=== PATIENT | female | born 1965 | race Caucasian/White ===

== ENCOUNTER 2024-10-24 11:39 | Emergency (ER) | payer SELFPAY ==
[2024-10-24 12:12] VITALS: BP 149/60; PULSE 66; RESP 18; TEMP 36.7; O2SAT 98; BMI 37.4
--- NOTE | 2024-10-24 12:25 | CT_ITS ---
WS: [id number] CT HEAD TECHNIQUE: Noncontrast CT of the head obtained from the skullbase to the vertex. CLINICAL INFORMATION: fall COMPARISON: None. DLP: 976.[address] scans at [facility] use at least one of these dose optimization techniques: automated exposure control; mA and/or kV adjustment per patient size (includes targeted exams where dose is matched to clinical indication); or iterative reconstruction. FINDINGS: No evidence of intracranial hemorrhage or mass effect. Ventricular system and basal cisterns are patent. Mild small vessel changes with mild parenchymal volume loss. No extra-axial fluid collections. No evidence of mass or mass effect. Paranasal sinuses and mastoid air cells are well aerated. .Normal visualized soft tissues. CT/CT head wo con* [id number] IMPRESSION: 1. No evidence of intracranial hemorrhage or mass effect. 2. No acute intracranial findings.
--- NOTE | 2024-10-24 12:25 | XR_ITS ---
WS: [id number] Exam: XR chest 1V portable [id number] Date/Time of Exam: 10/24/2024 12:31 PM Reason For Exam: weakness No priors. Soft tissue density identified along the RIGHT heart border may represent focal infiltrate, mass or atelectasis. The remaining lung krueger are clear no pleural effusions or pneumothorax. Normal heart size. The mediastinum is normal in contour. Bony structures are intact. Recommendations: Follow-up imaging recommended to confirm resolution. Chest CT may be necessary for further evaluation. XR/XR chest 1V portable [id number] IMPRESSION: 1. Pulmonary density seen along the RIGHT heart border that could represent a m ass, pneumonia and/or atelectasis. No prior exams available to determine the ch ronicity of this finding. No other significant finding.
[2024-10-24 12:38] VITALS: BP 148/56; O2SAT 97
[2024-10-24 12:45] VITALS: BP 148/56; O2SAT 98
[2024-10-24 12:45] LABS: Basophils # 0.1 10^3/uL (0.0-0.1); Basophils % 0.8 %; Eosinophils # 0.1 10^3/uL (0.0-0.8); Eosinophils % 1.6 %; Hematocrit 41.3 % (36-47); Lymphocytes # 1.4 10^3/uL (0.8-4.8); Mean Corpuscular HGB Conc 33.9 g/dL (30-55); Mean Corpuscular Hemoglobin 32.3 pg (27-33); Mean Corpuscular Volume 95.4 fl (85-98); Mean Platelet Volume 9.3 fL (7.4-10.4); Monocytes # 0.8 10^3/uL (0.2-0.9); Monocytes % 10.4 %; Neutrophils # 5.54 10^3/uL (1.8-7.7); Neutrophils % 69.7 %; Nucleated Red Blood Cells % 0 %; Platelet Count 363 10^3/cmm (157-399); Red Blood Count 4.33 10^6/uL (3.85-5.65); White Blood Count 7.95 10^3/uL (3.29-11.43)
--- NOTE | 2024-10-24 12:46 | ED_ITS ---
HPI - Weakness 2 General: Chief complaint: Weakness Stated complaint: trouble walking Time Seen by Provider: 10/24/24 12:21 Source: patient Mode of arrival: ambulatory Limitations: no limitations History of Present Illness: 59-year-old female states has been havin g lower leg weakness has been going on for a year. States she has had gradual increased weakness to her legs with a hard time walking she states its gotten worse since August and she has had frequent falls she able lift both legs but states she is feels extremely weak when she walks she denies any pain denies any back pain states she did hit her head 3 days when she fell and has had some slight headache. Associated symptoms: Denies chest pain, chills, fever(s), headache(s), nausea or vomiting Review of Systems 2 Const: Denies: fever(s), chills, body aches or change in appetite ENMT: Denies: throat pain or dental pain Card: Denies: chest pain Resp: Denies: dyspnea GI: Denies: abdominal pain, nausea, vomiting or diarrhea Musc: Denies: neck pain or back pain Skin/Breast: Denies: rash Neuro: Reports: weakness in extremities; Denies: headache(s) Physical Exam 2 Const: COMMON NORMALS: no acute distress, patient oriented x3 and healthy appearing HENMT: COMMON NORMALS: normocephalic and atraumatic HEAD & SCALP: n ormocephalic and atraumatic Eye: COMMON NORMALS: conjunctivae normal CONJUNCTIVA: Yes conjunctivae normal Neck/C-Spine: COMMON NORMALS: full ROM and supple Chest: COMMONS NORMALS: normal inspection of the chest Resp: COMMON NORMALS: normal respiratory effort, No retractions, No use of accessory muscles and clear to auscultation bilaterally AUSCULTATION: clear to auscultation bilaterally Cardio: COMMON NORMALS: regular rate, regular rhythm and No murmurs present (Cardio) RATE: regular rate RHYTHM: regular rhythm GI: COMMON NORMALS: Normal to inspection, nondistended, normoactive bowel sounds present, Soft to palpation, non-tender and no masses PALPATION: Yes Soft to palpation Extremity: COMMON NORMALS: normal to inspection and full ROM Neuro: COMMON NORMALS: patient oriented x3, moves all extremities and no focal motor deficits Psych: COMMON NORMALS: mental status grossly normal, Normal thought process present and cooperative THOUGHT PROCESS: Normal thought process present Skin: COMMON NORMALS: no rashes or lesions noted and no wounds GENERAL SKIN EXAM: no rashes or lesions noted Course 2 Vital Signs: Vital signs: Vital Signs Temperature 98.1 F 10/24/24 12:12 Pulse Rate 66 10/24/24 12:12 Respiratory Rate 18 10/24/24 12:12 Blood Pressure 148/76 10/24/24 14:01 Pulse Oximetry 98 10/24/24 14:01 Oxygen Delivery Me thod Room Air 10/24/24 12:12 MDM - Weakness Medical Decision Making Patient presents here with generalized weakness she is able to ambulate informed her she needs to start ambulating with a walker though CT did find a lung mass we will get a follow-up with oncology blood works normal no signs of lumbar mass stable for discharge follow-up PCP return if worsening. Medical Records I reviewed the patient's medical records. Lab Data I reviewed the patient's lab results. 10/24/24 12:39 10/24/24 12:39 Radiology Impressions Chest X-Ray 10/24/24 12:25 IMPRESSION: 1. Pulmonary density seen along the RIGHT heart border that could represent a mass, pneumonia and/or atelectasis. No prior exams available to determine the chronicity of this finding. No other significant finding. Head CT 10/24/24 12:25 IMPRESSION: 1. No evidence of intracranial hemorrhage or mass effect. 2. No acute intracranial findings. Chest CT 10/24/24 13:00 IMPRESSION: 1. Masslike consolidation in the right lower lobe extending into the right hilum concerning for malignancy. Multiple adjacent micro nodules could represent spread within the small airways. Recommend PET-CT or tissue sampling for further evaluation. 2. No evidence of a pulmonary embolism. No pneumothorax or pleural effusion. 3. Diffuse emphysema. Lumbar Spine CT 10/24/24 13:00 IMPRESSION: 1. No evidence of a lumbar spinal fracture or malalignment. Minimal degenerative change at L5-S1. No CT apparent disc herniation or spinal canal stenosis. 2. Nonspecific tree-in-bud type micro nodularity in the right lung base suggesting a atypical infectious process or nonspecific distal bronchiolitis. Laboratory Results WBC 7.95 10^3/uL (3.29-11.43) 10/24/24 12:39 RBC 4.33 10^6/uL (3.85-5.65) 10/24/24 12:39 Hgb 14.00 g/dL (11.27-16.99) 10/24/24 12:39 Hct 41.3 % (36-47) 10/24/24 12:39 MCV 95.4 fl (85-98) 10/24/24 12:39 MCH 32.3 pg (27-33) 10/24/24 12:39 MCHC 33.9 g/dL (30-55) 10/24/24 12:39 RDW 12.0 % (12.1-15.1) L 10/24/24 12:39 Plt Count 363 10^3/cmm (157-399) 10/24/24 12:39 MPV 9.3 fL (7.4-10.4) 10/24/24 12:39 Neut % (Auto) 69.7 % 10/24/24 12:39 Lymph % (Auto) 17.0 % 10/24/24 12:39 Morgan % (Auto) 10.4 % 10/24/24 12:39 Eos % (Auto) 1.6 % 10/24/24 12:39 Baso % (Auto) 0.8 % 10/24/24 12:39 Neut # (Auto) 5.54 10^3/uL (1.8-7.7) 10/24/24 12:39 Lymph # (Auto) 1.4 10^3/uL (0.8-4.8) 10/24/24 12:39 Morgan # (Auto) 0.8 10^3/uL (0.2-0.9) 10/24/24 12:39 Eos # (Auto) 0.1 10^3/uL (0.0-0.8) 10/24/24 12:39 Baso # (Auto) 0.1 10^3/uL (0.0-0.1) 10/24/24 12:39 Nucleated RBC % (auto) 0 % 10/24/24 12: Nucleated RBCs # 0.0 /100WBC 10/24/24 12:39 Sodium 135 mmol/L (136-145) L 10/24/24 12:39 Potassium 4.3 mmol/L (3.5-5.1) 10/24/24 12:39 Chloride 101 mmol/L (98-107) 10/24/24 12:39 Carbon Dioxide 26 mmol/L (22-29) 10/24/24 12:39 Anion Gap 12.3 (5-19) 10/24/24 12:39 BUN 7 mg/dL (8-23) L 10/24/24 12:39 Creatinine 0.6 mg/dL (0.5-0.9) 10/24/24 12:39 GFR Calculation 101.6 mL/min (90-130) 10/24/24 12:39 Glucose 104 mg/dL (65-115) 10/24/24 12:39 Calculated Osmolality 278 mOsm/kg (285-295) L 10/24/24 12:39 Calcium 9.1 mg/dL (8.5-10.5) 10/24/24 12:39 Magnesium 2.0 mg/dL (1.7-2.3) 10/24/24 12:39 Total Bilirubin 0.6 mg/dL (0.15-1.2) 10/24/24 12:39 AST 25 U/L (0-32) 10/24/24 12:39 ALT 22 U/L (0-33) 10/24/24 12:39 Alkaline Phosphatase 96 U/L (35-105) 10/24/24 12:39 Total Protein 7.5 g/dL (6.6-8.7) 10/24/24 12:39 Albumin 4.2 g/dL (3.5-5.2) 10/24/24 12:39 Globulin 3.3 g/dL (1.3-4.6) 10/24/24 12:39 TSH 4.91 uIU/mL (0.27-4.20) H 10/24/24 12:39 All radiology interpretation(s) finalized by discharge EKG Data EKG 1: I personally reviewed and interpreted this EKG as follows: EKG interpretation date: 10/24/24 EKG interpretation time: 13:53 Interpretation: nsr hr [address] elevation qrs 69 qtc 447 Discharge Plan Discharge Patient Disposition: Home Clinical Impression: Weakness, Lung mass Condition: Stable Prescriptions: No Action No Known Home Medications Discharge Orders: Discharge ED (Routine); Ordered 10/24/24 Ordered By: Abida Maria Discharge Diet: Advance as tolerated Discharge Activity: Resume usual activity Patient Instructions: Lung Cancer (DC), Weakness (ED) Print Language: Burkinan Coding Level of Care Code ED Sales Management Intern for Chg Fwd Related Data Home Medications ?Medication ?Instructions ?Recorded ?Confirmed No Known Home Medications 10/24/2410/01 Allergies Allergy/AdvReac Type Severity Reaction Status Date / Time No Known Allergies Allergy Verified 10/24/24 12:15
--- NOTE | 2024-10-24 13:00 | CTR_ITS ---
PROCEDURE INFORMATION: Exam: CT Lumbar Spine Without Contrast Exam date and time: 10/24/2024 1:38 PM Age: 59 years old Clinical indication: Weakness; Additional info: Leg weakness TECHNIQUE: Imaging protocol: Computed tomography of the lumbar spine without contrast. Radiation optimization: All CT scans at this facility use at least one of these dose optimization techniques: automated exposure control; mA and/or kV adjustment per patient size (includes targeted exams where dose is matched to clinical indication); or iterative reconstruction. COMPARISON: No relevant prior studies available. RADIATION DOSE METRICS: Total DLP (mGy-cm): 289.6 FINDINGS: Bones/joints: There is no evidence of increased density within the spinal canal to suggest hemorrhage. No CT apparent posterior disc herniation or spinal canal narrowing. Normal lumbar spinal alignment without listhesis. Vertebral body heights are maintained without compression deformity. Minimal endplate degenerative change L3 through L5 without evidence of disc space narrowing. Minimal facet arthrosis at L5-S1. Lungs: Scattered tree-in-bud type micro nodularity in the right lung base. Abdomen: Incidental splenic granulomatous calcification. Visualized abdominal solid organs and hollow viscera are otherwise unremarkable. Vasculature: Moderate atherosclerosis in the abdominal aorta without aneurysm. Soft tissues: The visualized superficial soft tissues have a normal appearance. CT/CT lumbar spine wo con* [id number] IMPRESSION: 1. No evidence of a lumbar spinal fracture or malalignment. Minimal degenerative change at L5-S1. No CT apparent disc herniation or spinal canal stenosis. 2. Nonspecific tree-in-bud type micro nodularity in the right lung base suggesting a atypical infectious process or nonspecific distal bronchiolitis.
--- NOTE | 2024-10-24 13:00 | CTR_ITS ---
PROCEDURE INFORMATION: Exam: CT Chest With Contrast; Diagnostic Exam date and time: 10/24/2024 1:38 PM Age: 59 years old Clinical indication: Bilateral leg weakness, difficulty standing straight and walking x 14 months. PT states she has a pinched nerve. PT C/O blurry vision, and SOB. ; Additional info: Cancer TECHNIQUE: Imaging protocol: Diagnostic computed tomography of the chest with contrast. Radiation optimization: All CT scans at this facility use at least one of these dose optimization techniques: automated exposure control; mA and/or kV adjustment per patient size (includes targeted exams where dose is matched to clinical indication); or iterative reconstruction. Contrast material: OMNI 350; Contrast volume: 100 ml; Contrast route: INTRAVENOUS (IV); COMPARISON: CR XR chest 1V portable [id number] 10/24/2024 12:31 PM RADIATION DOSE METRICS: Total DLP (mGy-cm): 526.65 FINDINGS: Lungs: Diffuse emphysematous changes. There is masslike consolidation in the right lower lobe extending into the inferior right hilum concerning for malignancy. This appears to have mass effect on the traversing pulmonary arteries and opacifies the right lower lobe bronchi. There are scattered adjacent micro nodules which could represent an infectious or inflammatory process or possible metastatic spread within the small airways. Pleural spaces: No pneumothorax or pleural effusion. There is a focal nodular pleural thickening in the right lung apex posteriorly which may represent scarring or possible nodule measuring approximately 1.3 cm in size. Heart: Normal size of the heart. No pericardial effusion. Lymph nodes: No mediastinal lymphadenopathy. There is inferior right hilar lymphadenopathy. Vasculature: Minimal atherosclerosis in the thoracic aorta and visualized upper abdominal aorta without aneurysm or dissection. The pulmonary arteries are well opacified with contrast. No evidence of a pulmonary embolism. Upper abdomen: Cholelithiasis is present in the gallbladder. No evidence of cholecystitis.The visualized upper abdominal solid organs and hollow viscera are otherwise unremarkable. Bones/joints: Mild scattered degenerative changes of the visualized spine. No aggressive osseous lesion or fracture is seen. Soft tissues: The visualized superficial soft tissues have a normal appearance. CT/CT chest w con* [id number] IMPRESSION: 1. Masslike consolidation in the right lower lobe extending into the right hilum concerning for malignancy. Multiple adjacent micro nodules could represent spread within the small airways. Recommend PET-CT or tissue sampling for further evaluation. 2. No evidence of a pulmonary embolism. No pneumothorax or pleural effusion. 3. Diffuse emphysema.
[2024-10-24 13:14] LABS: Alanine Aminotransferase 22 U/L (0-33); Albumin Level 4.2 g/dL (3.5-5.2); Alkaline Phosphatase 96 U/L (35-105); Anion Gap 12.3 (5-19); Aspartate Amino Transferase 25 U/L (0-32); Blood Urea Nitrogen 7 mg/dL (8-23); Calcium 9.1 mg/dL (8.5-10.5); Carbon Dioxide 26 mmol/L (22-29); Chloride 101 mmol/L (98-107); Globulin 3.3 g/dL (1.3-4.6); Glomerular Filtration Rate 101.6 mL/min (90-130); Glucose 104 mg/dL (65-115); Osmolality Calculated 278 mOsm/kg (285-295); Potassium 4.3 mmol/L (3.5-5.1); Sodium 135 mmol/L (136-145); Thyroid Stimulating Hormone 4.91 uIU/mL (0.27-4.20); Total Bilirubin 0.6 mg/dL (0.15-1.2); Total Protein 7.5 g/dL (6.6-8.7)
--- NOTE | 2024-10-24 13:53 | ECG_ITS ---
[facility] 2024[facility]24 Pat Name: Christa Mancera Department: Room: Gender: Female Lathe Spotter: : 1965 Requested By: Abida Maria Order Number: [id number] Eric MD: Manny Donaldson M.D. Measurements Intervals [place] Rate: 69 P: 64 MI: 172 QRS: 49 QRSD: 69 T: 64 QT: 429 QTc: 460 Interpretive Statements SINUS RHYTHM SEPTAL MYOCARDIAL INFARCTION , OF INDETERMINATE AGE [40+ ms Q WAVE IN V1/V2] No previous ECG available for comparison Electronically Signed On 10-25-2024 12:34:40 CDT by Manny Donaldson M.D. [email or web address]
[2024-10-24 14:01] VITALS: BP 148/76; O2SAT 98
== END 2024-10-24 15:02 | disposition home or self-care (01) ==
PROVIDERS: Emergency Provider Emergency Medicine
DX: R53.1 Weakness (principal); R91.8 Other nonspecific abnormal finding of lung field
CPT/HCPCS: 36415; 70450; 71045; 71260; 72131; 80053; 83735; 84443; 85025; 93005; 99285

== ENCOUNTER → 2024-12-26 15:24 | Outpatient (BNVA) | payer MEDICAID, SELFPAY | PROVIDERS: PCP Nurse Practitioner Family; Visit Provider Family Medicine | DX: Z01.818 Encounter for other preprocedural examination (principal) | CPT/HCPCS: 80048; 85025 ==

== ENCOUNTER 2024-12-27 12:30 | Oncology outpatient (recurring) (ONCR) | payer MEDICAID, SELFPAY ==
--- NOTE | 2024-12-04 11:00 | MR_ITS ---
WS: [id number] MRI BRAIN WITH AND WITHOUT CONTRAST HISTORY: small cell lung cancer, bilateral leg weakness. Difficulty standing and walking. COMPARISON: CT head 10/24/2024 TECHNIQUE: Multiplanar imaging performed through the brain with MultiHance 10 ml's IV. No acute infarcts are seen. Rachel-white matter differentiation is well preserved. Mild atrophy and mild small vessel ischemic changes, greatest in the periventricular white matter. No prior infarct. Mild cerebellar atrophy. There is mild chronic ischemic change bilaterally in the melanie. Mild hippocampal atrophy. No susceptibility artifacts or prior lacunar infarcts. Ventricles and extra-axial spaces are normal. Clivus and pituitary gland are normal. Visualized posterior fossa and brainstem are also normal. Postcontrast images are negative for masses or vascular malformations. Dural venous sinuses are normal. Paranasal sinuses: Well aerated with no significant disease. Mastoid air cells: Normal. Calvarium and scalp: Normal. MR/MR head wo/w con [id number] IMPRESSION: 1. No acute intracranial hemorrhage or infarct. 2. No metastatic disease to the brain or areas of abnormal enhancement. 3. Mild cerebral and cerebellar atrophy and small vessel disease. 4. Mild hippocampal atrophy.
[2024-12-04] MEDS: gadobenate dimeglumine 20 mL vial IV (11:28)
--- NOTE | 2024-12-15 14:00 | PETR_ITS ---
PROCEDURE INFORMATION: Exam: PET/CT Skull Base to Mid-thigh Exam date and time: 12/15/2024 2:02 PM Age: 59 years old Clinical indication: Condition or disease; Primary cancer: Smell cell lung cancer LABS AND CLINICAL REPORTS: Glucose: 108 mg/dl Treatment strategy for malignancy (PET staging): Initial Staging (PI) TECHNIQUE: Imaging protocol: Following at least four-hour fasting and following the injection of radiopharmaceutical, low dose CT images were obtained. Then, PET images were obtained. Attenuation corrected images were constructed using the CT scan. Fused images of PET and CT were reviewed. The standardized uptake values (SUV) reported below are maximum values within a region of interest, expressed in gm/ml. Exam includes orbital meatal line to mid-thigh. SUV normalization method: BodyWeight Radiopharmaceutical: 10.57 mCi F-18 FDG (Fluorodeoxyglucose), IV. Time of imaging post radiopharmaceutical administration: 48 minutes Injection site: right ac COMPARISON: 1. CT chest w con* [id number] 10/24/2024 1:[address] lumbar spine wo con* [id number] 10/24/2024 1:38 PM FINDINGS: Brain: Visualized brain has normal physiologic uptake. Pharynx: No abnormal uptake. Larynx: Symmetric uptake without underlying CT abnormality is likely physiologic. Lungs, pleura and trachea: Upper lung predominant emphysematous change. Known masslike opacity at the right lower lobe with associated bronchial occlusion shows SUV max 11.9 on axial image 121 and is partially obscured on CT from developed adjacent less FDG avid consolidation at the anterolateral basal right lower lobe. Heart: Normal physiologic uptake. Mediastinal space: No abnormal uptake. Liver: No abnormal uptake. Gallbladder and biliary ducts: No abnormal uptake. Cholelithiasis. Pancreas: No abnormal uptake. Spleen: No abnormal uptake. Adrenal glands: No abnormal uptake. Kidneys and ureters: Normal physiologic uptake. Stomach and bowel: No abnormal uptake. Colonic diverticulosis without findings of diverticulitis. Vasculature: No abnormal uptake. Moderate systemic atherosclerotic calcification without aortic aneurysm. Lymph nodes: FDG avid mediastinal and right hilar lymphadenopathy with index AP window node measuring 0.7 cm in the short axis on axial image 80 showing SUV max 3.9, subcarinal node measuring 0.9 cm in the short axis showing SUV max 4.7, and right hilar node showing SUV max 4.1 on axial image 104. Skeleton: Low-level FDG uptake along the spine and sacrum without underlying CT abnormality. Bilateral hip periarticular FDG uptake is likely inflammatory. Soft tissues: No abnormal uptake in the visualized head, neck, chest, abdomen, pelvis, and extremities. METRICS: Mediastinal blood pool: SUV mean 1.8 Liver uptake: SUV mean 2.0 PET/PET skull to thigh INIT [id number] IMPRESSION: 1. FDG avid right lower lobe masslike opacity compatible with malignancy. Associated bronchial occlusion. 2. Developed FDG avid anterolateral basal right lower lobe consolidation partially obscuring right lower lobe mass suggestive of postobstructive pneumonia given upstream bronchial occlusion, progressive malignant disease involvement not excluded. 3. FDG avid mediastinal and right hilar lymphadenopathy suspected to represent metastatic disease. 4. Low-level FDG uptake along the spine and sacrum without underlying CT abnormality favors hyperplasia. 5. Additional chronic and incidental findings as above, to include atherosclerosis, colonic diverticulosis and cholelithiasis.
[2024-12-19 09:24] LABS: Basophils # 0.1 10^3/uL (0.0-0.1); Basophils % 0.3 %; Hematocrit 33.3 % (36-47); Lymphocytes # 1.1 10^3/uL (0.8-4.8); Lymphocytes % 3.1 %; Mean Corpuscular HGB Conc 33.3 g/dL (30-55); Mean Corpuscular Hemoglobin 31.4 pg (27-33); Mean Corpuscular Volume 94.3 fl (85-98); Mean Platelet Volume 9.2 fL (7.4-10.4); Monocytes % 5.5 %; Neutrophils # 31.96 10^3/uL (1.8-7.7); Neutrophils % 87.9 %; Nucleated Red Blood Cells % 0 %; Platelet Count 525 10^3/cmm (157-399); Red Blood Count 3.53 10^6/uL (3.85-5.65); Red Cell Distribution Width 14.2 % (12.1-15.1)
[2024-12-19 09:27] LABS: White Blood Count 36.33 10^3/uL (3.29-11.43)
[2024-12-19 09:46] LABS: Alanine Aminotransferase 11 U/L (0-33); Albumin Level 2.6 g/dL (3.5-5.2); Alkaline Phosphatase 207 U/L (35-105); Anion Gap 22.2 (5-19); Aspartate Amino Transferase 11 U/L (0-32); Blood Urea Nitrogen 9 mg/dL (8-23); Calcium 8.4 mg/dL (8.5-10.5); Carbon Dioxide 20 mmol/L (22-29); Chloride 99 mmol/L (98-107); Creatinine Clr Calc Pharmacy 85.3193; Globulin 4.1 g/dL (1.3-4.6); Glomerular Filtration Rate 125.4 mL/min (90-130); Glucose 104 mg/dL (65-115); Osmolality Calculated 285 mOsm/kg (285-295); Potassium 3.2 mmol/L (3.5-5.1); Sodium 138 mmol/L (136-145); Total Bilirubin 0.4 mg/dL (0.15-1.2); Total Protein 6.7 g/dL (6.6-8.7)
--- NOTE | 2024-12-19 16:21 | N.ONRAD NP_ITS ---
Radiation Oncology New Patient Visit Patient: Christa Mancera MR#: [id number] : 1965> Age: 59> Sex: Female> Dictated by: Dr. 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 Chief Complaint / History of Present Illness: She developed progressive LE weakness since ultimately resulting in visit to ER. In ER CT 10/24/2024 revealed mass or infiltrate in RLL. Bronch and bx 11/28/2024 of RLL revealed small cell lung carcinoma. PET/CT 12/15/2024 revealed solid mass 6.5 x 5.5 mass I RLL with ring of uptake c/w necrotic malignancy abutting chest wall and diaphragm , uptake in right hilar, sub-carinal and left AP lymph nodes. No occult metastatic disease on my review. Leg weakness and stiffness is progressive. Walks slowly and holds on to surfaces for stabilization. Also using a cane. Always SOB. PO2 is in the 90???s. Ongoing weight loss from 110 to 98 pounds. Tries to eat. Lives with boyfriend x 28 years who is not much help to her. Ongoing fatigue. Ongoing right low chest and flank pain. Smoking less from 1 ppd to ??? ppd. Current Medications: albuterol sulfate 90 mcg/actuation (Ventolin HFA) inhalation, umeclidinium-vilanterol 62.5-25 mcg/actuation (Anoro Ellipta) inhalation Allergies: No Known Allergies Medical History: No history of collagen vascular disease. No previous radiation therapy. Surgical History: Family History: mother and father of malignancy. Social History: Smoking and tobacco/nicotine status: current some day tobacco/nicotine user Current Complaints / Review of Systems: . Vital Signs: Performed on 12/19/2024 9:04 AM BMI - 17.856 kg/m2 (low), Height - 61 in, Weight - 94.5 lbs, Temperature - 98.7 f, Pulse - 82 /min, Respiration - 17 /min, O2 Sat - 98 %, Pain - 9, Fatigue - 0 and BP - 105/ 66 mm(hg). Physical Exam: Elderly appearing for age. No adenopathy. Occ rhonchi in lower right field. No extremity clubbing or edema. Gait very slow wide based and unsteady. 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 This has caused her neurologic impairment. She is a fair candidate for combined chest radiation and chemo immunotherapy. Discussed briefly the use of PCI after completion of primary treatment. Long discussion with patient and her daughter. 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 Advised her that she would also benefit from smoking cessation. Discussed with Dr. Hebert Plan on simulation and port placement. Dr. Hebert will add appropriate pain mes. Plan: Signed by: 12/19/2024 4:19:45 PM <<Signature on File>> Time spent with patient: CPT Code: CPT Code:
--- NOTE | 2024-12-27 12:42 | XR_ITS ---
WS: [id number] PA and lateral chest, 12/27/2024 Clinical Data: leukocytosis, productive cough Comparison: Portable chest, 10/24/2024 Findings: There is opacification of the right lower lobe with a right pleural effusion. The opacification could represent a mass in the right hilum and right lower lobe with surrounding postobstructive atelectasis and/or pneumonia. The left lung is clear. The heart is normal. No pneumothorax is seen. The pulmonary vascularity is not increased. XR/XR chest 2V* [id number] Impression: 1. Patchy right lower lobe opacity which could represent a combination of mass, pneumonia and atelectasis. 2. Small right pleural effusion.
[2024-12-27 13:27] LABS: Basophils # 0.1 10^3/uL (0.0-0.1); Basophils % 0.4 %; Eosinophils % 0.1 %; Hematocrit 33.4 % (36-47); Lymphocytes % 4.2 %; Mean Corpuscular HGB Conc 31.7 g/dL (30-55); Mean Corpuscular Hemoglobin 30.5 pg (27-33); Mean Platelet Volume 9.1 fL (7.4-10.4); Monocytes # 1.5 10^3/uL (0.2-0.9); Monocytes % 6.5 %; Neutrophils # 19.29 10^3/uL (1.8-7.7); Neutrophils % 85.9 %; Nucleated Red Blood Cells % 0 %; Platelet Count 364 10^3/cmm (157-399); Red Blood Count 3.48 10^6/uL (3.85-5.65); Red Cell Distribution Width 14.9 % (12.1-15.1); White Blood Count 22.45 10^3/uL (3.29-11.43)
[2024-12-27 13:52] LABS: Alanine Aminotransferase 26 U/L (0-33); Albumin Level 2.5 g/dL (3.5-5.2); Alkaline Phosphatase 245 U/L (35-105); Anion Gap 22.4 (5-19); Aspartate Amino Transferase 34 U/L (0-32); Blood Urea Nitrogen 10 mg/dL (8-23); Calcium 8.1 mg/dL (8.5-10.5); Carbon Dioxide 18 mmol/L (22-29); Chloride 97 mmol/L (98-107); Creatinine Clr Calc Pharmacy 85.3193; Globulin 4.3 g/dL (1.3-4.6); Glomerular Filtration Rate 125.4 mL/min (90-130); Glucose 93 mg/dL (65-115); Osmolality Calculated 275 mOsm/kg (285-295); Potassium 4.4 mmol/L (3.5-5.1); Sodium 133 mmol/L (136-145); Total Bilirubin 0.3 mg/dL (0.15-1.2); Total Protein 6.8 g/dL (6.6-8.7)
== END 2024-12-30 23:59 | disposition home or self-care (01) ==
PROVIDERS: Internal Medicine Medical Oncology; Absent Provider Family Medicine; PCP Nurse Practitioner Family; Visit Provider Radiology Radiation Oncology
DX: C34.81 Malignant neoplasm of overlapping sites of right bronchus and lung (principal); D72.829 Elevated white blood cell count, unspecified; J90 Pleural effusion, not elsewhere classified
CPT/HCPCS: 36415; 70553; 71046; 77334; 78815; 80053; 85025; 87040; A9552

== ENCOUNTER → 2025-02-14 08:52 | Day surgery (SDC) | payer MEDICAID, SELFPAY ==
--- NOTE | 2024-12-29 08:26 | PICC.NOTE ---
Pt scheduled for OPS PICC today. Pt called and stated she had a bad night of coughing and will not be able to make it to appointment. Pt instructed to go to ER for continued shortness of breath and coughing. Pt states she doesn't think it is that bad. Pt rescheduled for OPS PICC on 01/01/25 at 1000. [facility]
--- NOTE | 2025-02-14 08:56 | XR_ITS ---
WS: [id number] XR chest 1V portable [id number] REASON FOR EXAM: Post PICC insertion FINDINGS: Right arm PICC line has been placed. The tip is in the mid to distal SVC. X-ray technologist/PICC line nurse indicated there is no additional catheter for advancement. The catheter will work properly in the current position. This was communicated over the phone to the radiology physician at 9:34 a.m. 02/14/2025. XR/XR chest 1V portable [id number] IMPRESSION: Right arm PICC line placement as above.
[2025-02-14 09:00] VITALS: BP 149/60; PULSE 75; RESP 18; TEMP 36.9; O2SAT 95
--- NOTE | 2025-02-14 10:07 | PICC.NOTE ---
Single lumen PICC placed to right brachial vein. Referred to vascular access nurse for PICC placement due to need for chemotherapy. Risks and benefits discussed and informed consent obtained from pt. Right arm assessed with right brachial vein measuring 4.2 mm, straight, and apparent best choice for placement. Using sterile technique and MST, right brachial vein accessed x 1 stick. Mid-arm circumference measured 10 cm from right AC 22 cm. Trimmed cath 35 cm with 0 cm external length noted. CXR shows tip in SVC, in proper position for use per radiologist. Line secured with stat-lock. Insertion site covered with Biopatch and TSM. Oncology, Evelyn, notified of successful PICC placement. Pt to keep follow up appointment with CTC tomorrow as scheduled. Pt provided education on PICC with handouts. No questions voiced at this time.
== END ==
PROVIDERS: PCP Nurse Practitioner Family; Visit Provider Internal Medicine
DX: Z45.2 Encounter for adjustment and management of vascular access device (principal)
CPT/HCPCS: 36573; 71045; J9999

== ENCOUNTER 2025-03-01 14:51 | Oncology outpatient (recurring) (ONCR) | payer MEDICAID, SELFPAY ==
[2025-02-20 08:17] LABS: Hematocrit 36.9 % (36-47); Hemoglobin 11.60 g/dL (11.27-16.99); Mean Corpuscular HGB Conc 31.4 g/dL (30-55); Mean Corpuscular Hemoglobin 30.0 pg (27-33); Mean Corpuscular Volume 95.3 fl (85-98); Nucleated Red Blood Cells % 0 %; Platelet Count 307 10^3/cmm (157-399); Red Blood Count 3.87 10^6/uL (3.85-5.65); White Blood Count 8.25 10^3/uL (3.29-11.43)
--- NOTE | 2025-02-20 08:56 | ONCRAD TMN_ITS ---
Radiation Oncology Weekly Treatment Management Patient: Calderon Almanza MR#: [id number] : 1965> Attending Physician: Shankar Coats Date of Service: 02/20/2025 Referring Physician(s) : Diagnosis: C34.31 - Malignant neoplasm of lower lobe, right bronchus or lung, Diagnosed 12/19/2024 (Active) C77.1 - Secondary and unspecified malignant neoplasm of intrathoracic lymph nodes, Diagnosed 12/19/2024 (Active) Radiotherapy to date: Course: Lung 2024, Treatment Site: SCLC RLL, Ref. ID: [id number], Energy: 6X, Dose/Fx (cGy): 200, #Fx: , Dose Correction (cGy): 0, Total Dose Delivered (cGy): 200, Start Date: 02/20/2025, Elapsed Days: 0 Reason for visit: The patient is being seen today as part of their regularly scheduled weekly on treatment visits to assess for acute toxicities from radiotherapy. Review of Systems: First XRT today. Patient started her chemotherapy today. Patient looks much better than previous note 12/19/2024. She does use 4 post cane. She is asking for her pain medicine that was originally requested on January 14. She notes multiple different places that she had it to be called into. We will reviewed the State narcotic site to see if she truly did not receive it. She apparently has been homeless but is secured living facilities at this time. Vital Signs: Performed on 02/20/2025 8:16 AM BMI - 18.366 kg/m2 (low), Height - 61 in, Weight - 97.2 lbs, Temperature - 98 f, Pulse - 74 /min, Respiration - 18 /min, O2 Sat - 96 %, Pain - 0, Fatigue - 0 and BP - 111/ 65 mm(hg). Physical Exam: AAOx3. Skin intact. No apparent SOB. Imaging: Radiation therapy imaging related to accurate target localization (i.e. KV, MV and CBCT) was reviewed. Appropriate changes, if any, were made to ensure treatment accuracy. Plan: Continue XRT Start chemotherapy today Review State narcotic site to review any recent narcotic prescriptions. No narcotic prescriptions have been obtained taking so we will send the Rx to [facility]. Signed by: Shankar Coats 02/20/2025 8:55:40 AM
[2025-02-20 12:32] LABS: Alanine Aminotransferase 10 U/L (0-33); Albumin Level 3.6 g/dL (3.5-5.2); Alkaline Phosphatase 118 U/L (35-105); Anion Gap 15.3 (5-19); Aspartate Amino Transferase 12 U/L (0-32); Blood Urea Nitrogen 9 mg/dL (8-23); Calcium 8.6 mg/dL (8.5-10.5); Carbon Dioxide 24 mmol/L (22-29); Chloride 100 mmol/L (98-107); Creatinine Clr Calc Pharmacy 106.5911; Globulin 4.1 g/dL (1.3-4.6); Glucose 82 mg/dL (65-115); Osmolality Calculated 278 mOsm/kg (285-295); Potassium 4.3 mmol/L (3.5-5.1); Sodium 135 mmol/L (136-145); Total Protein 7.7 g/dL (6.6-8.7)
--- NOTE | 2025-02-20 17:07 | PC.NURSE ---
IV with PICC line with good blood return but the lab specimens not acceptable due to hemolysis. This did cause some anxiety issues and she was very agitated due to no getting treatment started without it being later this afternoon for the finish time and she needed to be home before too late. Brianna Castaneda notified with the okay to start her treatment tomorrow. She did agree for tomorrow and her schedule was reviewed several times with the process of radiation and her treatment times. She left to go home with her ride and also BENTLEY Davison did give her gas card and explained how this would work throughout her treatment times. She was in agreement and less anxious when she left.bon
[2025-02-21] MEDS: diphenhydrAMINE 50 mg/mL SDV 1mL 25 MG IVP (09:26)
[2025-02-21] MEDS: aprepitant 130 mg/18 ml SDV IVP (09:29)
[2025-02-21] MEDS: dexamethasone 4 mg/mL INJ 5 mL 12 MG IV (09:35)
[2025-02-21] MEDS: ondansetron 2 mg/ML SDV 2 mL 8 MG IVP (09:42)
[2025-02-21] MEDS: CARBOPLATIN IV (10:28)
[2025-02-21] MEDS: SODIUM CHLORIDE 0.9% IV (10:28)
[2025-02-21] MEDS: etoposide 140 MG in sodium chloride 0.9%(non-DEHP) 500 ML 507 MG IV (12:45)
[2025-02-21 14:05] VITALS: BP 98/55; PULSE 88; RESP 18; TEMP 36.6; O2SAT 94
[2025-02-22 10:00] VITALS: BP 120/65; PULSE 78; RESP 17; TEMP 36.6; O2SAT 96
[2025-02-22] MEDS: ondansetron 2 mg/ML SDV 2 mL 8 MG IVP (11:10)
[2025-02-22] MEDS: etoposide 140 MG in sodium chloride 0.9%(non-DEHP) 500 ML 507 MG IV (11:27)
[2025-02-22 12:41] VITALS: BP 148/76; PULSE 65; RESP 17; TEMP 36.1; O2SAT 96
[2025-02-22 13:22] VITALS: BP 134/78; PULSE 78; RESP 17; TEMP 36.1; O2SAT 95
[2025-02-23] MEDS: etoposide 140 MG in sodium chloride 0.9%(non-DEHP) 500 ML 507 MG IV (08:45)
[2025-02-23 09:53] VITALS: BP 131/68; PULSE 65; RESP 17; TEMP 36.8; O2SAT 94
[2025-02-27 09:49] LABS: Hematocrit 36.4 % (36-47); Hemoglobin 11.30 g/dL (11.27-16.99); Mean Corpuscular HGB Conc 31.0 g/dL (30-55); Mean Corpuscular Hemoglobin 29.7 pg (27-33); Mean Corpuscular Volume 95.8 fl (85-98); Nucleated Red Blood Cells % 0 %; Platelet Count 283 10^3/cmm (157-399); Red Blood Count 3.80 10^6/uL (3.85-5.65); White Blood Count 4.06 10^3/uL (3.29-11.43)
[2025-02-27 10:11] LABS: Alanine Aminotransferase 14 U/L (0-33); Albumin Level 3.8 g/dL (3.5-5.2); Alkaline Phosphatase 136 U/L (35-105); Anion Gap 18.3 (5-19); Aspartate Amino Transferase 17 U/L (0-32); Blood Urea Nitrogen 17 mg/dL (8-23); Calcium 8.7 mg/dL (8.5-10.5); Carbon Dioxide 24 mmol/L (22-29); Chloride 94 mmol/L (98-107); Creatinine Clr Calc Pharmacy 71.0607; Globulin 4.2 g/dL (1.3-4.6); Glucose 102 mg/dL (65-115); Osmolality Calculated 276 mOsm/kg (285-295); Potassium 4.3 mmol/L (3.5-5.1); Sodium 132 mmol/L (136-145); Total Protein 8.0 g/dL (6.6-8.7)
--- NOTE | 2025-02-27 10:27 | ONCRAD TMN_ITS ---
Radiation Oncology Weekly Treatment Management Patient: Christa Mancera MR#: [id number] : 1965 Attending Physician: Dr. Shankar Coats Date of Service: 02/27/2025 Referring Physician(s) : Diagnosis: C34.31 - Malignant neoplasm of lower lobe, right bronchus or lung, Diagnosed 12/19/2024 (Active) C77.1 - Secondary and unspecified malignant neoplasm of intrathoracic lymph nodes, Diagnosed 12/19/2024 (Active) Radiotherapy to date: Course: Lung 2024, Treatment Site: SCLC RLL, Ref. ID: [id number], Energy: 6X, Dose/Fx (cGy): 200, #Fx: 30, Dose Correction (cGy): 0, Total Dose Delivered (cGy): 1,000, Start Date: 02/20/2025, Elapsed Days: 7 Reason for visit: The patient is being seen today as part of their regularly scheduled weekly on treatment visits to assess for acute toxicities from radiotherapy. Review of Systems: Patient has lost 4 pounds since last visit. She however eats very well with high calorie input. She is also complaining of pneumonia type symptoms and speaks with shortness of breath. She is coughing up yellow sputum. We will call in Levaquin to [facility] [place]. Her next chemo will be on March 14 q. 21-day schedule. Vital Signs: Performed on 02/27/2025 10:05 AM BMI - 17.61 kg/m2 (low), Height - 61 in, Weight - 93.2 lbs, Temperature - 97.8 f, Pulse - 86 /min, Respiration - 18 /min, O2 Sat - 98 %, Pain - 7, Fatigue - 0 and BP - 109/ 66 mm(hg). Physical Exam: AAOx3. Skin intact Imaging: Radiation therapy imaging related to accurate target localization (i.e. KV, MV and CBCT) was reviewed. Appropriate changes, if any, were made to ensure treatment accuracy. Plan: Continue XRT Rx Levaquin 500 mg #7 1 daily till finished-[facility] Signed by: Shankar Coats 02/27/2025 10:27:11 AM
[2025-02-27 10:29] LABS: Slide Review Slide Review Perform
== END 2025-03-01 23:59 | disposition home or self-care (01) ==
PROVIDERS: Nurse Practitioner; Absent Provider Family Medicine; PCP Nurse Practitioner Family; Visit Provider Radiology Radiation Oncology
DX: Z51.0 Encounter for antineoplastic radiation therapy (principal); C34.31 Malignant neoplasm of lower lobe, right bronchus or lung; C77.1 Secondary and unspecified malignant neoplasm of intrathoracic lymph nodes
CPT/HCPCS: 36415; 77336; 77386; 80053; 85025; 96375; 96413; 96417; J0185; J1100; J1200; J2405; J2469; J3490; J7030; J7040; J7050; J9045; J9181; J9999

== ENCOUNTER 2025-03-30 08:00 | Oncology outpatient (recurring) (ONCR) | payer MEDICAID, SELFPAY ==
[2025-03-13 09:00] LABS: Hematocrit 32.6 % (36-47); Hemoglobin 10.20 g/dL (11.27-16.99); Mean Corpuscular HGB Conc 31.3 g/dL (30-55); Mean Corpuscular Hemoglobin 29.7 pg (27-33); Mean Corpuscular Volume 94.8 fl (85-98); Nucleated Red Blood Cells % 0 %; Platelet Count 259 10^3/cmm (157-399); Red Blood Count 3.44 10^6/uL (3.85-5.65); White Blood Count 2.26 10^3/uL (3.29-11.43)
[2025-03-13 09:14] LABS: Alanine Aminotransferase 7 U/L (0-33); Albumin Level 3.3 g/dL (3.5-5.2); Alkaline Phosphatase 127 U/L (35-105); Anion Gap 11.6 (5-19); Aspartate Amino Transferase 13 U/L (0-32); Blood Urea Nitrogen 10 mg/dL (8-23); Calcium 8.9 mg/dL (8.5-10.5); Carbon Dioxide 26 mmol/L (22-29); Chloride 101 mmol/L (98-107); Creatinine Clr Calc Pharmacy 85.2309; Globulin 3.8 g/dL (1.3-4.6); Glucose 104 mg/dL (65-115); Osmolality Calculated 279 mOsm/kg (285-295); Potassium 3.6 mmol/L (3.5-5.1); Sodium 135 mmol/L (136-145); Total Protein 7.1 g/dL (6.6-8.7)
--- NOTE | 2025-03-13 10:03 | ONCRAD TMN_ITS ---
Radiation Oncology Weekly Treatment Management Patient: Calderon Almanza MR#: [id number] : 1965> Attending Physician: Shankar Coats Date of Service: 03/13/2025 Referring Physician(s) : Diagnosis: C34.31 - Malignant neoplasm of lower lobe, right bronchus or lung, Diagnosed 12/19/2024 (Active) C77.1 - Secondary and unspecified malignant neoplasm of intrathoracic lymph nodes, Diagnosed 12/19/2024 (Active) Radiotherapy to date: Course: Lung 2024, Treatment Site: SCLC RLL, Ref. ID: [id number], Energy: 6X, Dose/Fx (cGy): 200, #Fx: , Dose Correction (cGy): 0, Total Dose Delivered (cGy): 2,000, Start Date: 02/20/2025, Elapsed Days: Reason for visit: The patient is being seen today as part of their regularly scheduled weekly on treatment visits to assess for acute toxicities from radiotherapy. Review of Systems: All fall last week due to her pneumonia. I did give her Levaquin and that has resolved. Patient denies any fevers, chills, night sweats, or hemoptysis. She does have low back pain but feels it was from her coughing. She has not received chemo and labs today showed Absolute sal[place] Neutrophils at 0.87. She is not going to have chemo but we will treat her to 500 neutrophils. We will check her labs on again. Vital Signs: Performed on 03/13/2025 9:16 AM BMI - 18.328 kg/m2 (low), Height - 61 in, Weight - 97 lbs, Temperature - 98.7 f, Pulse - 71 /min, Respiration - 17 /min, O2 Sat - 98 %, Pain - 8, Fatigue - 0 and BP - 115/ 63 mm(hg)(/low). Physical Exam: AAOx 3. No intercostal retraction. Imaging: Radiation therapy imaging related to accurate target localization (i.e. KV, MV and CBCT) was reviewed. Appropriate changes, if any, were made to ensure treatment accuracy. Plan: Continue XRT CBC prior to treatment on of this week. Signed by: Shankar Coats 03/13/2025 10:01:24 AM
--- NOTE | 2025-03-13 16:27 | PC.NURSE ---
Sterile Dressing change to the right Picc line with
[2025-03-15 14:14] LABS: Hematocrit 32.3 % (36-47); Hemoglobin 10.40 g/dL (11.27-16.99); Mean Corpuscular HGB Conc 32.2 g/dL (30-55); Mean Corpuscular Hemoglobin 30.4 pg (27-33); Mean Corpuscular Volume 94.4 fl (85-98); Nucleated Red Blood Cells % 0 %; Platelet Count 323 10^3/cmm (157-399); Red Blood Count 3.42 10^6/uL (3.85-5.65); White Blood Count 3.43 10^3/uL (3.29-11.43)
[2025-03-15 14:39] LABS: Alanine Aminotransferase 7 U/L (0-33); Albumin Level 3.4 g/dL (3.5-5.2); Alkaline Phosphatase 126 U/L (35-105); Anion Gap 15.5 (5-19); Aspartate Amino Transferase 15 U/L (0-32); Blood Urea Nitrogen 14 mg/dL (8-23); Calcium 8.8 mg/dL (8.5-10.5); Carbon Dioxide 24 mmol/L (22-29); Chloride 102 mmol/L (98-107); Creatinine Clr Calc Pharmacy 71.0257; Globulin 3.6 g/dL (1.3-4.6); Glucose 89 mg/dL (65-115); Osmolality Calculated 284 mOsm/kg (285-295); Potassium 4.5 mmol/L (3.5-5.1); Sodium 137 mmol/L (136-145); Total Protein 7.0 g/dL (6.6-8.7)
[2025-03-20 11:05] LABS: Hematocrit 35.9 % (36-47); Hemoglobin 11.40 g/dL (11.27-16.99); Mean Corpuscular HGB Conc 31.8 g/dL (30-55); Mean Corpuscular Hemoglobin 30.9 pg (27-33); Mean Corpuscular Volume 97.3 fl (85-98); Nucleated Red Blood Cells % 0 %; Platelet Count 328 10^3/cmm (157-399); Red Blood Count 3.69 10^6/uL (3.85-5.65); White Blood Count 3.09 10^3/uL (3.29-11.43)
[2025-03-20 11:16] LABS: Alanine Aminotransferase 10 U/L (0-33); Albumin Level 3.9 g/dL (3.5-5.2); Alkaline Phosphatase 124 U/L (35-105); Anion Gap 14.7 (5-19); Aspartate Amino Transferase 19 U/L (0-32); Blood Urea Nitrogen 10 mg/dL (8-23); Calcium 9.1 mg/dL (8.5-10.5); Carbon Dioxide 25 mmol/L (22-29); Chloride 101 mmol/L (98-107); Creatinine Clr Calc Pharmacy 85.2309; Globulin 3.7 g/dL (1.3-4.6); Glucose 93 mg/dL (65-115); Osmolality Calculated 281 mOsm/kg (285-295); Potassium 4.7 mmol/L (3.5-5.1); Sodium 136 mmol/L (136-145); Total Protein 7.6 g/dL (6.6-8.7)
--- NOTE | 2025-03-20 11:53 | ONCRAD TMN_ITS ---
Radiation Oncology Weekly Treatment Management Patient: Christa Mancera MR#: [id number] : 1965 Attending Physician: Shankar Coats Date of Service: 03/20/2025 Referring Physician(s) : Diagnosis: C34.31 - Malignant neoplasm of lower lobe, right bronchus or lung, Diagnosed 12/19/2024 (Active) C77.1 - Secondary and unspecified malignant neoplasm of intrathoracic lymph nodes, Diagnosed 12/19/2024 (Active) Radiotherapy to date: Course: Lung 2024, Treatment Site: SCLC RLL, Ref. ID: [id number], Energy: 6X, Dose/Fx (cGy): 200, #Fx: 14 30, Dose Correction (cGy): 0, Total Dose Delivered (cGy): 2,800, Start Date: 02/20/2025, End Date: 03/19/2025, Elapsed Days: 27 Reason for visit: The patient is being seen today as part of their regularly scheduled weekly on treatment visits to assess for acute toxicities from radiotherapy. Review of Systems: Patient gained a pound since last visit. Patient has received 15 out of 30 fractions. She complains of pain in the right floating rib anteriorly. No specific mass appreciated. May be some costochondritis. Labs are adequate for chemo. Vital Signs: Performed on 03/20/2025 11:31 AM BMI - 18.555 kg/m2, Height - 61 in, Weight - 98.2 lbs, Temperature - 97.5 f, Pulse - 70 /min, Respiration - 17 /min, O2 Sat - 98 %, Pain - 8, Fatigue - 0 and BP - 119/ 63 mm(hg)(/low). Physical Exam: AAOx3. Skin intact. No palpable masses in the anterior floating rib area on the right. Imaging: Radiation therapy imaging related to accurate target localization (i.e. KV, MV and CBCT) was reviewed. Appropriate changes, if any, were made to ensure treatment accuracy. Plan: Continue XRT Labs adequate for chemo Continue chemotherapy as planned Signed by: Shankar Coats 03/20/2025 11:50:55 AM
[2025-03-27 14:30] LABS: Hematocrit 37.3 % (36-47); Hemoglobin 12.00 g/dL (11.27-16.99); Mean Corpuscular HGB Conc 32.2 g/dL (30-55); Mean Corpuscular Hemoglobin 31.5 pg (27-33); Mean Corpuscular Volume 97.9 fl (85-98); Nucleated Red Blood Cells % 0 %; Platelet Count 217 10^3/cmm (157-399); Red Blood Count 3.81 10^6/uL (3.85-5.65); White Blood Count 4.69 10^3/uL (3.29-11.43)
[2025-03-27 14:52] LABS: Alanine Aminotransferase 17 U/L (0-33); Albumin Level 4.1 g/dL (3.5-5.2); Alkaline Phosphatase 136 U/L (35-105); Anion Gap 13.0 (5-19); Aspartate Amino Transferase 25 U/L (0-32); Blood Urea Nitrogen 10 mg/dL (8-23); Calcium 9.5 mg/dL (8.5-10.5); Carbon Dioxide 26 mmol/L (22-29); Chloride 100 mmol/L (98-107); Creatinine Clr Calc Pharmacy 106.5386; Globulin 3.8 g/dL (1.3-4.6); Glucose 135 mg/dL (65-115); Osmolality Calculated 281 mOsm/kg (285-295); Potassium 4.0 mmol/L (3.5-5.1); Sodium 135 mmol/L (136-145); Total Protein 7.9 g/dL (6.6-8.7)
--- NOTE | 2025-03-27 15:08 | ONCRAD TMN_ITS ---
Radiation Oncology Weekly Treatment Management Patient: Christa Mancera MR#: [id number] : 1965 Attending Physician: Shankar Coats Date of Service: 03/27/2025 Referring Physician(s) : Diagnosis: C34.31 - Malignant neoplasm of lower lobe, right bronchus or lung, Diagnosed 12/19/2024 (Active) C77.1 - Secondary and unspecified malignant neoplasm of intrathoracic lymph nodes, Diagnosed 12/19/2024 (Active) Radiotherapy to date: Course: Lung 2024, Treatment Site: SCLC RLL, Ref. ID: [id number], Energy: 6X, Dose/Fx (cGy): 200, #Fx: 18 / 30, Dose Correction (cGy): 0, Total Dose Delivered (cGy): 3,600, Start Date: 02/20/2025, Elapsed Days: 35 Reason for visit: The patient is being seen today as part of their regularly scheduled weekly on treatment visits to assess for acute toxicities from radiotherapy. Review of Systems: This is a 60-year-old female being treated for right LL mass. Labs today were adequate for chemo tomorrow. She lost 1 pound since last visit. She is however eating well. She is at 18 out of 30 fractions. Vital Signs: Performed on 03/27/2025 2:43 PM BMI - 18.441 kg/m2 (low), Height - 61 in, Weight - 97.6 lbs, Temperature - 97.1 f, Pulse - 71 /min, Respiration - 16 /min, O2 Sat - 97 %, Pain - 7, Fatigue - 0 and BP - 148/ 84 mm(hg)(high/). Physical Exam: AAox3. Skin intact. Imaging: Radiation therapy imaging related to accurate target localization (i.e. KV, MV and CBCT) was reviewed. Appropriate changes, if any, were made to ensure treatment accuracy. Plan: Continue XRT Chemotherapy tomorrow Signed by: Shankar Coats 03/27/2025 3:07:11 PM
[2025-03-28] MEDS: dexamethasone 4 mg/mL INJ 5 mL 12 MG IV (09:20)
[2025-03-28] MEDS: diphenhydrAMINE 50 mg/mL SDV 1mL 25 MG IVP (09:24)
[2025-03-28] MEDS: ondansetron 2 mg/ML SDV 2 mL 8 MG IVP (09:27)
[2025-03-28] MEDS: CARBOPLATIN IV (10:29)
[2025-03-28] MEDS: SODIUM CHLORIDE 0.9% IV (10:29)
[2025-03-28] MEDS: etoposide 140 MG in sodium chloride 0.9%(non-DEHP) 500 ML 507 MG IV (11:39)
[2025-03-28 13:12] VITALS: BP 105/66; PULSE 74; TEMP 36.8; O2SAT 99
[2025-03-29 10:47] VITALS: BP 130/76; PULSE 72; RESP 18; TEMP 36.9; O2SAT 96
[2025-03-29] MEDS: ondansetron 2 mg/ML SDV 2 mL 8 MG IVP (11:04)
[2025-03-29] MEDS: etoposide 140 MG in sodium chloride 0.9%(non-DEHP) 500 ML 507 MG IV (12:02)
[2025-03-29 13:25] VITALS: BP 112/67; PULSE 78; RESP 17; TEMP 36.1; O2SAT 98
[2025-03-29 13:27] VITALS: BP 125/85; PULSE 84; TEMP 36.7; O2SAT 95
[2025-03-30 07:59] VITALS: BP 134/75; PULSE 65; RESP 16; TEMP 36.3; O2SAT 99
[2025-03-30] MEDS: etoposide 140 MG in sodium chloride 0.9%(non-DEHP) 500 ML 507 MG IV (09:04)
[2025-03-30 10:23] VITALS: BP 118/71; PULSE 72; TEMP 36.1; O2SAT 97
== END 2025-04-01 23:59 | disposition home or self-care (01) ==
PROVIDERS: Internal Medicine Medical Oncology; Nurse Practitioner; Absent Provider Family Medicine; PCP Nurse Practitioner Family; Visit Provider Radiology Radiation Oncology
DX: Z53.9 Procedure and treatment not carried out, unspecified reason; Z51.11 Encounter for antineoplastic chemotherapy; C34.81 Malignant neoplasm of overlapping sites of right bronchus and lung; Z79.899 Other long term (current) drug therapy
CPT/HCPCS: 36415; 77336; 77386; 80053; 85025; 96375; 96413; 96417; 99024; J1100; J1200; J1453; J2405; J2469; J3490; J7030; J7040; J7050; J9045; J9181; J9999

== ENCOUNTER 2025-04-26 11:00 | Oncology outpatient (recurring) (ONCR) | payer MEDICAID, SELFPAY ==
--- NOTE | 2025-04-05 14:41 | ONCRAD TMN_ITS ---
Radiation Oncology Weekly Treatment Management Patient: Calderon Almanza MR#: [id number] : 1965> Attending Physician: Shankar Coats Date of Service: 04/05/2025 Referring Physician(s) : Diagnosis: C34.31 - Malignant neoplasm of lower lobe, right bronchus or lung, Diagnosed 12/19/2024 (Active) C77.1 - Secondary and unspecified malignant neoplasm of intrathoracic lymph nodes, Diagnosed 12/19/2024 (Active) Radiotherapy to date: Course: Lung 2024, Treatment Site: SCLC RLL, Ref. ID: [id number], Energy: 6X, Dose/Fx (cGy): 200, #Fx: , Dose Correction (cGy): 0, Total Dose Delivered (cGy): 4,400, Start Date: 02/20/2025, Elapsed Days: 44 Reason for visit: The patient is being seen today as part of their regularly scheduled weekly on treatment visits to assess for acute toxicities from radiotherapy. Review of Systems: This is a pleasant 60 female who is been reauthorized for the completion of treatment by her insurance company. 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 She denies any increase in shortness of breath hemoptysis or intercostal retraction. Vital Signs: Performed on 04/05/2025 1:56 PM BMI - 18.479 kg/m2 (low), Height - 61 in, Weight - 97.8 lbs, Temperature - 96.9 f, Pulse - 83 /min, Respiration - 18 /min, O2 Sat - 98 %, Pain - 7, Fatigue - 0 and BP - 134/ 75 mm(hg). Physical Exam: [id number] right posterior portal dry desquamation. She will utilize creams liberally. Imaging: Radiation therapy imaging related to accurate target localization (i.e. KV, MV and CBCT) was reviewed. Appropriate changes, if any, were made to ensure treatment accuracy. Plan: Continue XRT Continue creams Signed by: Shankar Coats 04/05/2025 2:40:12 PM
[2025-04-05 15:19] LABS: Hematocrit 36.6 % (36-47); Hemoglobin 11.90 g/dL (11.27-16.99); Mean Corpuscular HGB Conc 32.5 g/dL (30-55); Mean Corpuscular Hemoglobin 31.7 pg (27-33); Mean Corpuscular Volume 97.6 fl (85-98); Nucleated Red Blood Cells % 0 %; Platelet Count 119 10^3/cmm (157-399); Red Blood Count 3.75 10^6/uL (3.85-5.65); White Blood Count 2.78 10^3/uL (3.29-11.43)
[2025-04-05 15:42] LABS: Alanine Aminotransferase 23 U/L (0-33); Albumin Level 3.9 g/dL (3.5-5.2); Alkaline Phosphatase 131 U/L (35-105); Anion Gap 15.5 (5-19); Aspartate Amino Transferase 30 U/L (0-32); Blood Urea Nitrogen 8 mg/dL (8-23); Calcium 9.0 mg/dL (8.5-10.5); Carbon Dioxide 27 mmol/L (22-29); Chloride 99 mmol/L (98-107); Globulin 3.6 g/dL (1.3-4.6); Glucose 84 mg/dL (65-115); Osmolality Calculated 282 mOsm/kg (285-295); Potassium 4.5 mmol/L (3.5-5.1); Sodium 137 mmol/L (136-145); Total Protein 7.5 g/dL (6.6-8.7)
--- NOTE | 2025-04-10 12:33 | ONCRAD TMN_ITS ---
Radiation Oncology Weekly Treatment Management Patient: Christa Mancera MR#: [id number] : 1965 Attending Physician: Dr. Kit Morales Date of Service: 04/10/2025 Referring Physician(s) : Diagnosis: C34.31 - Malignant neoplasm of lower lobe, right bronchus or lung, Diagnosed 12/19/2024 (Active) C77.1 - Secondary and unspecified malignant neoplasm of intrathoracic lymph nodes, Diagnosed 12/19/2024 (Active) Radiotherapy to date: Course: Lung 2024, Treatment Site: SCLC RLL, Ref. ID: [id number], Energy: 6X, Dose/Fx (cGy): 200, #Fx: 25 / 30, Dose Correction (cGy): 0, Total Dose Delivered (cGy): 5,000, Start Date: 02/20/2025, End Date: 04/10/2025, Elapsed Days: 49 Reason for visit: The patient is being seen today as part of their regularly scheduled weekly on treatment visits to assess for acute toxicities from radiotherapy. Review of Systems: Doing a lot better now. Able to walk independently. Has a walker and cane at home now. Gained a pound. Living with boy friend in a trailer. She still smokes ??? ppd. Some sore throat better with magic mouthwash. Vital Signs: Physical Exam: omitted Imaging: Radiation therapy imaging related to accurate target localization (i.e. KV, MV and CBCT) was reviewed. Appropriate changes, if any, were made to ensure treatment accuracy. 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 Advised her to quit smoking. Will renew Xanax and magic mouthwash. Signed by: Dr. Kit Morales 04/10/2025 12:32:23 PM
[2025-04-17 09:30] LABS: Hematocrit 30.1 % (36-47); Hemoglobin 10.30 g/dL (11.27-16.99); Mean Corpuscular HGB Conc 34.2 g/dL (30-55); Mean Corpuscular Hemoglobin 33.1 pg (27-33); Mean Corpuscular Volume 96.8 fl (85-98); Platelet Count 130 10^3/cmm (157-399); Red Blood Count 3.11 10^6/uL (3.85-5.65); White Blood Count 1.79 10^3/uL (3.29-11.43)
--- NOTE | 2025-04-17 09:52 | N.ONRD TS_ITS ---
Radiation Oncology OTV/Treatment Summary Patient: Christa Mancera MR#: [id number] : 1965 Age: 60 Sex: Female Dictated by: Shankar Coats Date of Service: 04/17/2025 Referring Physician(s) : Diagnosis: C34.31 - Malignant neoplasm of lower lobe, right bronchus or lung, Diagnosed 12/19/2024 (Active) C77.1 - Secondary and unspecified malignant neoplasm of intrathoracic lymph nodes, Diagnosed 12/19/2024 (Active) Radiotherapy to Date: Course: Lung 2024, Treatment Site: SCLC RLL, Ref. ID: [id number], Energy: 6X, Dose/Fx (cGy): 200, #Fx: 30 / 30, Dose Correction (cGy): 0, Total Dose Delivered (cGy): 6,000, Start Date: 02/20/2025, End Date: 04/17/2025, Elapsed Days: 56 Vital Signs: BMI - 18.328 kg/m2 (low), Height - 61 in, Weight - 97 lbs, Temperature - 97.2 f, Pulse - 95 /min, Respiration - 17 /min, O2 Sat - 98 %, Pain - 5, Fatigue - 0 and BP - 97/ 61 mm(hg)(/low). Clinical Summary: The patient tolerated RT well. Patient has maintained her weight. She is noticing some decrease in appetite but she is excited for wednesday. She will receive chemotherapy today if her labs are adequate. Plan: End of treatment today. Continue on the above medication until the skin reaction resolves. Follow up in one month on 05/17/2025 at 1500 hrs. or sooner if need be.. Signed by: Shankar Coats>04/17/2025 9:52:21 AM <<Signature on File>>
[2025-04-17 10:02] LABS: Slide Review Slide Review Perform
[2025-04-17 10:03] LABS: Absolute Segmented Neutrophil 0.2 10/cmm (1.6-7.1); Atypical Lymphs 1.0 % (0-5); Band Neutrophils Absolute 0.0 10^3/cmm (0.0-1.2); Total Cells Counted 100 (0-100)
[2025-04-17 10:31] LABS: Alanine Aminotransferase 16 U/L (0-33); Albumin Level 3.7 g/dL (3.5-5.2); Alkaline Phosphatase 165 U/L (35-105); Anion Gap 14.3 (5-19); Aspartate Amino Transferase 25 U/L (0-32); Blood Urea Nitrogen 7 mg/dL (8-23); Calcium 9.0 mg/dL (8.5-10.5); Carbon Dioxide 26 mmol/L (22-29); Chloride 99 mmol/L (98-107); Creatinine Clr Calc Pharmacy 85.2309; Globulin 3.7 g/dL (1.3-4.6); Glucose 116 mg/dL (65-115); Osmolality Calculated 279 mOsm/kg (285-295); Potassium 4.3 mmol/L (3.5-5.1); Sodium 135 mmol/L (136-145); Total Protein 7.4 g/dL (6.6-8.7)
[2025-04-24 09:02] LABS: Hematocrit 34.5 % (36-47); Hemoglobin 11.30 g/dL (11.27-16.99); Mean Corpuscular HGB Conc 32.8 g/dL (30-55); Mean Corpuscular Hemoglobin 33.1 pg (27-33); Mean Corpuscular Volume 101.2 fl (85-98); Nucleated Red Blood Cells % 0 %; Platelet Count 174 10^3/cmm (157-399); Red Blood Count 3.41 10^6/uL (3.85-5.65); White Blood Count 2.87 10^3/uL (3.29-11.43)
[2025-04-24 09:24] LABS: Alanine Aminotransferase 21 U/L (0-33); Albumin Level 3.7 g/dL (3.5-5.2); Alkaline Phosphatase 183 U/L (35-105); Anion Gap 13.0 (5-19); Aspartate Amino Transferase 27 U/L (0-32); Blood Urea Nitrogen 14 mg/dL (8-23); Calcium 9.2 mg/dL (8.5-10.5); Carbon Dioxide 26 mmol/L (22-29); Chloride 101 mmol/L (98-107); Creatinine Clr Calc Pharmacy 86.2335; Globulin 3.8 g/dL (1.3-4.6); Glucose 109 mg/dL (65-115); Osmolality Calculated 283 mOsm/kg (285-295); Potassium 4.0 mmol/L (3.5-5.1); Sodium 136 mmol/L (136-145); Total Protein 7.5 g/dL (6.6-8.7)
[2025-04-24] MEDS: dexamethasone 4 mg/mL INJ 5 mL 12 MG IV (10:44)
[2025-04-24] MEDS: ondansetron 2 mg/ML SDV 2 mL 8 MG IVP (10:47)
[2025-04-24] MEDS: diphenhydrAMINE 50 mg/mL SDV 1mL 25 MG IVP (10:54)
[2025-04-24] MEDS: CARBOPLATIN IV (12:23)
[2025-04-24] MEDS: SODIUM CHLORIDE 0.9% IV (12:23)
[2025-04-24] MEDS: etoposide 140 MG in sodium chloride 0.9%(non-DEHP) 500 ML 507 MG IV (13:38)
[2025-04-24 14:55] VITALS: BP 124/78; PULSE 84; RESP 18; TEMP 36.6; O2SAT 97
[2025-04-25 11:06] VITALS: BP 105/68; PULSE 89; TEMP 36.6
[2025-04-25] MEDS: ondansetron 2 mg/ML SDV 2 mL 8 MG IVP (11:27)
[2025-04-25] MEDS: etoposide 140 MG in sodium chloride 0.9%(non-DEHP) 500 ML 507 MG IV (12:02)
[2025-04-25 13:28] VITALS: BP 143/77; PULSE 105; TEMP 37
[2025-04-26 11:03] VITALS: BP 110/72; PULSE 92; RESP 18; TEMP 37.4; O2SAT 95
[2025-04-26] MEDS: etoposide 140 MG in sodium chloride 0.9%(non-DEHP) 500 ML 507 MG IV (11:52)
[2025-04-26] MEDS: pegfilgrastim 6 mg/0.6 mL Kit (onpro) SUBCUT (13:14)
== END 2025-04-26 23:59 | disposition home or self-care (01) ==
PROVIDERS: Internal Medicine; Radiology Radiation Oncology; Absent Provider Family Medicine; PCP Nurse Practitioner Family; Visit Provider Internal Medicine Medical Oncology
DX: Z53.9 Procedure and treatment not carried out, unspecified reason (principal); Z51.11 Encounter for antineoplastic chemotherapy; C34.81 Malignant neoplasm of overlapping sites of right bronchus and lung; Z79.634 Long term (current) use of topoisomerase inhibitor
CPT/HCPCS: 36415; 36592; 77336; 77386; 80053; 85007; 85025; 96367; 96375; 96377; 96402; 96413; 96417; 99024; J1100; J1200; J1453; J2405; J2469; J2506; J3490; J7030; J7040; J7050; J9045; J9181; J9999

== ENCOUNTER 2025-05-28 16:30 | Oncology outpatient (recurring) (ONCR) | payer MEDICAID, SELFPAY ==
[2025-05-08 12:07] LABS: Hematocrit 28.0 % (36-47); Hemoglobin 9.30 g/dL (11.27-16.99); Mean Corpuscular HGB Conc 33.2 g/dL (30-55); Mean Corpuscular Hemoglobin 33.5 pg (27-33); Mean Corpuscular Volume 100.7 fl (85-98); Nucleated Red Blood Cells % 0 %; Platelet Count 35 10^3/cmm (157-399); Red Blood Count 2.78 10^6/uL (3.85-5.65); White Blood Count 7.96 10^3/uL (3.29-11.43)
[2025-05-08 12:25] LABS: Slide Review Slide Review Perform
[2025-05-08 12:30] LABS: Alanine Aminotransferase 24 U/L (0-33); Albumin Level 3.8 g/dL (3.5-5.2); Alkaline Phosphatase 300 U/L (35-105); Anion Gap 15.2 (5-19); Aspartate Amino Transferase 28 U/L (0-32); Blood Urea Nitrogen 10 mg/dL (8-23); Calcium 9.0 mg/dL (8.5-10.5); Carbon Dioxide 23 mmol/L (22-29); Chloride 102 mmol/L (98-107); Globulin 3.6 g/dL (1.3-4.6); Glucose 106 mg/dL (65-115); Osmolality Calculated 281 mOsm/kg (285-295); Potassium 4.2 mmol/L (3.5-5.1); Sodium 136 mmol/L (136-145); Total Protein 7.4 g/dL (6.6-8.7)
[2025-05-15 09:30] LABS: Hematocrit 25.9 % (36-47); Hemoglobin 8.60 g/dL (11.27-16.99); Mean Corpuscular HGB Conc 33.2 g/dL (30-55); Mean Corpuscular Hemoglobin 34.3 pg (27-33); Mean Corpuscular Volume 103.2 fl (85-98); Nucleated Red Blood Cells % 0 %; Platelet Count 120 10^3/cmm (157-399); Red Blood Count 2.51 10^6/uL (3.85-5.65); White Blood Count 6.93 10^3/uL (3.29-11.43)
[2025-05-15 09:47] LABS: Alanine Aminotransferase 21 U/L (0-33); Albumin Level 3.9 g/dL (3.5-5.2); Alkaline Phosphatase 333 U/L (35-105); Anion Gap 15.4 (5-19); Aspartate Amino Transferase 30 U/L (0-32); Blood Urea Nitrogen 12 mg/dL (8-23); Calcium 8.8 mg/dL (8.5-10.5); Carbon Dioxide 25 mmol/L (22-29); Chloride 100 mmol/L (98-107); Globulin 3.3 g/dL (1.3-4.6); Glucose 113 mg/dL (65-115); Osmolality Calculated 283 mOsm/kg (285-295); Potassium 4.4 mmol/L (3.5-5.1); Sodium 136 mmol/L (136-145); Total Protein 7.2 g/dL (6.6-8.7)
[2025-05-15] MEDS: diphenhydrAMINE 50 mg/mL SDV 1mL 25 MG IVP (10:43)
[2025-05-15] MEDS: ondansetron 2 mg/ML SDV 2 mL 8 MG IVP (10:50)
[2025-05-15] MEDS: dexamethasone 4 mg/mL INJ 5 mL 12 MG IV (10:55)
[2025-05-15] MEDS: SODIUM CHLORIDE 0.9% IV (12:01)
[2025-05-15] MEDS: CARBOPLATIN IV (12:01)
[2025-05-15] MEDS: etoposide 140 MG in sodium chloride 0.9%(non-DEHP) 500 ML 507 MG IV (13:24)
[2025-05-15 14:53] VITALS: BP 120/71; PULSE 75; RESP 16; TEMP 36.6; O2SAT 97
[2025-05-16 11:17] VITALS: BP 106/62; PULSE 91; RESP 17; TEMP 36.2; O2SAT 99
[2025-05-16] MEDS: ondansetron 2 mg/ML SDV 2 mL 8 MG IVP (11:30)
[2025-05-16] MEDS: etoposide 140 MG in sodium chloride 0.9%(non-DEHP) 500 ML 507 MG IV (12:11)
[2025-05-17 11:05] VITALS: BP 135/63; PULSE 92; O2SAT 90
[2025-05-17] MEDS: etoposide 140 MG in sodium chloride 0.9%(non-DEHP) 500 ML 507 MG IV (11:50)
[2025-05-17] MEDS: pegfilgrastim 6 mg/0.6 mL Kit (onpro) SUBCUT (13:17)
[2025-05-17 13:21] VITALS: BP 109/68; PULSE 82; O2SAT 96
--- NOTE | 2025-05-28 16:30 | CT_ITS ---
WS: [id number] CT CHEST, ABDOMEN AND PELVIS WITH CONTRAST HISTORY: small cell lung cancer TECHNIQUE: Contiguous 5 mm axial imaging performed through the chest, abdomen and pelvis with IV contrast, oral contrast has been provided. Coronal and sagittal reformats chest. Coronal and sagittal reformats through the abdomen and pelvis. All CT scans at [facility] use at least one of these dose optimization techniques: automated exposure control; mA and/or kV adjustment per patient size (includes targeted exams where dose is matched to clinical indication); or iterative reconstruction. CONTRAST: Omnipaque 350; 100 mL IV. DLP: 430.79 mGy.cm COMPARISON: PET/CT 12/15/2024, CT chest 10/24/[address]: Severe centrilobular emphysema. Mild volume loss in the RIGHT thorax since the prior study. There is now a dense area of consolidation with volume loss in the RIGHT lower lobe. This is in the area of the previously described neoplasm. There is atelectatic changes with enhancement. There is a small associated effusion. Mild bronchial wall thickening extends into the inferior RIGHT lower lobe. Overall decrease in size of the previously described mass. No new or enlarging mass identified. Decrease in size of the mediastinal and hilar lymph nodes. No residual enlarged lymph nodes. Heart size is normal. Normal size aorta and pulmonary artery. No pulmonary emboli. No destructive bone lesions. Abdomen CT: No metastatic disease within the liver or adrenal glands. Normal size spleen with granuloma. Stones likely within the gallbladder. Mild pancreatic atrophy. No renal obstruction or solid mass. Moderate atherosclerotic plaque within the abdominal aorta. Moderate narrowing of the proximal iliac arteries. Mesenteric arteries are patent. No GI tract obstruction. Pelvic CT: Atrophic uterus with peripheral venous enhancement. No free fluid or adenopathy identified in the pelvis. Mild anterior wedging of L3. No destructive bone lesions identified. CT/CT chest abdpel w/*[id number] IMPRESSION: 1. Post radiation treatment changes in the RIGHT lower lobe. Previously descri bed mass consolidation that was PET/CT positive has significantly decreased in size. There is now atelectatic lung with volume loss and a small effusion. Resi dual tumor is difficult to identify within this area of atelectatic lung. Recom mend continued short-term serial CT evaluation to ensure continued improvement. 2. Mediastinal and hilar lymph node adenopathy has resolved. 3. No metastatic disease to the liver or adrenal glands. 4. Severe centrilobular emphysema. 5. Likely cholelithiasis.
[2025-05-28] MEDS: iohexol 350 mg/mL 500 mL Btl (per mL) PO (16:42)
[2025-05-28] MEDS: iohexol 350 mg/mL 500 mL Btl (per mL) IV (17:29)
== END 2025-06-01 23:59 | disposition home or self-care (01) ==
LOC: RAD 05-29 → ONCMED 05-29 10:57
PROVIDERS: Absent Provider Family Medicine; PCP Nurse Practitioner Family; Visit Provider Internal Medicine Medical Oncology
DX: C34.81 Malignant neoplasm of overlapping sites of right bronchus and lung; J98.11 Atelectasis; R91.8 Other nonspecific abnormal finding of lung field; J90 Pleural effusion, not elsewhere classified; J43.2 Centrilobular emphysema; R93.3 Abnormal findings on diagnostic imaging of other parts of digestive tract; R93.89 Abnormal findings on diagnostic imaging of other specified body structures; D73.89 Other diseases of spleen; I77.1 Stricture of artery; N85.8 Other specified noninflammatory disorders of uterus; M48.56XA Collapsed vertebra, not elsewhere classified, lumbar region, initial encounter for fracture; Z53.9 Procedure and treatment not carried out, unspecified reason
CPT/HCPCS: 36415; 71260; 74177; 80053; 85025; 96367; 96375; 96377; 96413; 96415; J1100; J1200; J1453; J2405; J2469; J2506; J3490; J7030; J7040; J7050; J9045; J9181; J9999

== ENCOUNTER 2025-07-31 12:00 | Oncology outpatient (recurring) (ONCR) | payer MEDICAID, SELFPAY ==
--- NOTE | 2025-07-06 11:52 | N.ONRD TS_ITS ---
Radiation Oncology Treatment Summary Patient: Christa Mancera MR#: [id number] : 1965 Age: 60 Sex: Female Dictated by: Dr. Mary Ann Fletcher Date of Service: 07/06/2025 Referring Physician(s) : Dr. Hebert Diagnosis: C34.31 - Malignant neoplasm of lower lobe, right bronchus or lung, Diagnosed 12/19/2024 (Active) C77.1 - Secondary and unspecified malignant neoplasm of intrathoracic lymph nodes, Diagnosed 12/19/2024 (Active) Radiotherapy to Date: Course: Lung 2024, Treatment Site: SCLC RLL, Ref. ID: [id number], Energy: 6X, Dose/Fx (cGy): 200, #Fx: 30 / 30, Dose Correction (cGy): 0, Total Dose Delivered (cGy): 6,000, Start Date: 02/20/2025, End Date: 04/17/2025, Elapsed Days: 56 Course: PCI, Treatment Site: PCI WBRT, Ref. ID: Brain, Energy: 6X, Dose/Fx (cGy): 200, #Fx: 10 / 10, Dose Correction (cGy): 0, Total Dose Delivered (cGy): 2,000, Start Date: 06/11/2025, End Date: 07/06/2025, Elapsed Days: 25 Clinical Summary: The patient tolerated RT well. She had no ill effects. Plan: End of treatment today. Continue on the above medication until the skin reaction resolves. Follow up in one month. Signed by: Dr. Mary Ann Fletcher>07/06/2025 11:51:18 AM <<Signature on File>>
[2025-07-31 12:35] LABS: Alanine Aminotransferase 19 U/L (0-33); Albumin Level 4.1 g/dL (3.5-5.2); Alkaline Phosphatase 242 U/L (35-105); Blood Urea Nitrogen 6 mg/dL (8-23); Calcium 9.6 mg/dL (8.5-10.5); Carbon Dioxide 20 mmol/L (22-29); Chloride 95 mmol/L (98-107); Globulin 3.7 g/dL (1.3-4.6); Glucose 120 mg/dL (65-115); Osmolality Calculated 275 mOsm/kg (285-295); Sodium 133 mmol/L (136-145); Thyroid Stimulating Hormone 2.00 uIU/mL (0.27-4.20); Total Protein 7.8 g/dL (6.6-8.7)
[2025-07-31 12:44] LABS: Anion Gap 21.9 (5-19); Potassium 3.9 mmol/L (3.5-5.1)
[2025-07-31 12:45] LABS: Aspartate Amino Transferase 30 U/L (0-32)
[2025-07-31] MEDS: durvalumab 1,500 MG in sodium chloride 0.9% 250 ML 280 MG IV (13:17)
[2025-07-31 13:25] LABS: Hematocrit 42.8 % (36-47); Hemoglobin 14.20 g/dL (11.27-16.99); Mean Corpuscular HGB Conc 33.2 g/dL (30-55); Mean Corpuscular Hemoglobin 36.2 pg (27-33); Mean Corpuscular Volume 109.2 fl (85-98); Nucleated Red Blood Cells % 0 %; Platelet Count 166 10^3/cmm (157-399); Red Blood Count 3.92 10^6/uL (3.85-5.65); White Blood Count 5.63 10^3/uL (3.29-11.43)
[2025-07-31 14:19] VITALS: BP 116/69; PULSE 83; RESP 18; TEMP 36.4; O2SAT 94
== END 2025-07-31 23:59 | disposition home or self-care (01) ==
PROVIDERS: Internal Medicine Medical Oncology; Absent Provider Family Medicine; PCP Nurse Practitioner Family; Visit Provider Nurse Practitioner Family
DX: Z51.12 Encounter for antineoplastic immunotherapy; C34.31 Malignant neoplasm of lower lobe, right bronchus or lung; E87.6 Hypokalemia; G89.3 Neoplasm related pain (acute) (chronic); Z79.899 Other long term (current) drug therapy; Z53.9 Procedure and treatment not carried out, unspecified reason
CPT/HCPCS: 77336; 77387; 77412; 80053; 84443; 85025; 96413; A4222; J7050; J9173